=== PATIENT | female | born 1955 | race Caucasian/White ===

== ENCOUNTER → 2019-10-15 15:37 | Outpatient (CLI) | payer BC ==
[2013-11-12 15:22] VITALS: BMI 48.4
[~2019-10-15 15:37] MED LIST: ACETAMINOPHEN500 M1 PO; DIFLUCAN200 MG PO; DIOVAN160 MG PO; DUONEB 2.5-0.5 M3 ML UPD; HYCODAN SYRUP480 ML PO; HYDROCHLOROTH12.5 M1 PO; LEVAQUIN500 MG PO; NORCO 10/325 TA1 TA1 PO; OGEN1.5 MG PO; PRILOSEC20 MG PO; PROZAC20 MG PO; PULMICORT0.5 MG/21 INH; STERAPRED DS 1210 MG PO; SYNTHROID175 MCG PO; ZITHROMAX TRI-500 MG PO
== END | disposition home or self-care (01) ==
LOC: D.RAD 10-03 10:30
PROVIDERS: ATTEND Legal Medicine
DX: C90.00 Multiple myeloma not having achieved remission (principal)

== ENCOUNTER 2020-06-04 20:15 | Emergency (ER) | payer MEDICARE, OTHER ==
[~2020-06-04] VITALS: Ht 167.6 cm; Wt 113.6 kg
[2020-06-04 20:41] VITALS: Ht 167.6 cm; Wt 113.6 kg
[2020-06-04 22:43] VITALS: BP 114/57
== END 2020-06-04 23:03 | disposition home or self-care (01) ==
LOC: D.ER 20:15
DX: T46.1X1A Poisoning by calcium-channel blockers, accidental (unintentional), initial encounter (principal); E07.9 Disorder of thyroid, unspecified; I10 Essential (primary) hypertension; J45.909 Unspecified asthma, uncomplicated